=== PATIENT | female | born 1955 | race Caucasian/White ===

== ENCOUNTER → 2016-08-29 09:12 | Outpatient (CLI) | payer MEDICARE | LOC: D.MAMMO 09:12 | DX: Z12.31 Encounter for screening mammogram for malignant neoplasm of breast (principal) ==

== ENCOUNTER → 2016-12-13 13:46 | Outpatient (CLI) | payer MEDICARE ==
[2016-12-13 15:44] LABS: BASOPHILS 0.3 % (0-2); HEMATOCRIT 43.6 % (36.0-48.0); HEMOGLOBIN 14.5 g/dL (12-16); IMMATURE GRANULOCYTES 0.3 % (0-5); LYMPHOCYTES 20.9 % (15-50); MCH 30.6 pg (26.0-34.0); MCHC 33.3 g/dL (31.0-37.0); MEAN PLATELET VOLUME 9.9 fL (7.4-10.4); MONOCYTES 6.2 % (2-11); NEUTROPHILS 66.3 % (40-80); PLATELET COUNT 276 10x3/uL (130-400); RBC 4.74 10x6/uL (4.00-5.40); RDW 13.2 % (11.5-14.5); WBC 11.6 10x3/uL (4.8-10.8)
== END | disposition home or self-care (01) ==
LOC: D.RT 13:46
PROVIDERS: Internal Medicine Pulmonary Disease
DX: J45.909 Unspecified asthma, uncomplicated (principal)

== ENCOUNTER → 2017-06-20 19:31 | Outpatient (CLI) | payer MEDICARE | END | disposition home or self-care (01) | LOC: D.SLEEP 08:00 | DX: G47.36 Sleep related hypoventilation in conditions classified elsewhere (principal) ==

== ENCOUNTER → 2017-10-16 07:48 | Outpatient (CLI) | payer MEDICARE | END | disposition home or self-care (01) | LOC: D.RT 07:48 | DX: J45.909 Unspecified asthma, uncomplicated (principal) ==

== ENCOUNTER 2018-06-03 03:38 | Inpatient (IN) | payer MEDICARE ==
[2018-06-03] VITALS (9 sets, daily range): BP systolic 113–124; BP diastolic 54–74; Ht 170.2 cm; Wt 86.4 kg
[~2018-06-03] VITALS: Ht 170.2 cm; Wt 86.4 kg
[2018-06-03] MEDS ORDERED: VASOTEC5 MG PO (03:43)
[2018-06-03] MEDS ORDERED: K-TAB10 MEQ PO (03:44)
[2018-06-03] MEDS ORDERED: LASIX40 MG PO (03:44)
[2018-06-03] MEDS ORDERED: PREDNISONE10 MG PO (03:46)
[2018-06-03] MEDS ORDERED: ADVAIR HFA 230-12 GM INH (03:46)
[2018-06-03] MEDS ORDERED: ALENDRONAT70 MG/75 M PO (03:46)
[2018-06-03] MEDS ORDERED: SINGULAIR10 MG PO (03:46)
[2018-06-03] MEDS ORDERED: L-LYSINE500 M1 PO (03:46)
[2018-06-03] MEDS ORDERED: ALBUTEROL SULF8.5 GM INH (03:47)
[2018-06-03] MEDS ORDERED: ATROVENT HFA12.9 GM (03:47)
[2018-06-03 03:57] LABS: BASOPHILS 0.3 % (0-2); EOSINOPHILS 2.3 % (0-7); HEMATOCRIT 40.2 % (36.0-48.0); HEMOGLOBIN 13.2 g/dL (12-16); IMMATURE GRANULOCYTES 0.3 % (0-5); LYMPHOCYTES 17.2 % (15-50); MCH 30.1 pg (26.0-34.0); MCHC 32.8 g/dL (31.0-37.0); MCV 91.6 fL (80.0-100.0); MEAN PLATELET VOLUME 9.7 fL (7.4-10.4); MONOCYTES 7.5 % (2-11); NEUTROPHILS 72.4 % (40-80); PLATELET COUNT 250 10x3/uL (130-400); RBC 4.39 10x6/uL (4.00-5.40); RDW 12.8 % (11.5-14.5); WBC 10.9 10x3/uL (4.8-10.8)
[2018-06-03 04:12] LABS: APTT 25.1 SECONDS (22.8-39.4); INR 0.99 (0.85-1.17); PROTIME 12.6 SECONDS (11.6-15.0)
[2018-06-03 04:17] LABS: ALBUMIN 2.9 g/dL (3.4-5.0); ALKALINE PHOSPHATASE 59 U/L (46-116); ALT (SGPT) 21 U/L (10-68); BILIRUBIN - TOTAL 0.13 mg/dL (0.2-1.3); CALC OSMOLALITY 280 mosm/kg (275-300); CALCIUM 8.1 mg/dL (8.5-10.1); CARBON DIOXIDE 28.5 mmol/L (21.0-32.0); CHLORIDE - SERUM 104 mmol/L (98-107); CREATININE - SERUM 0.7 mg/dL (0.6-1.3); GLUCOSE 113 mg/dL (74-106); POTASSIUM - SERUM 3.6 mmol/L (3.5-5.1); PROTEIN - SERUM 6.8 g/dL (6.4-8.2); SODIUM 139 mmol/L (136-145); UREA NITROGEN 18 mg/dL (7-18); eGFR NON AFRICAN AMERICAN 89 mL/min (90-120)
[2018-06-03 04:25] LABS: PRO BNP 102 pg/mL (0-125); TROPONIN-I < 0.017 ng/mL (0.000-0.060)
--- NOTE | 2018-06-03 07:43 | NUR ---
PATIENT IN BED WITH IV INTACT. TRACTION INTACT. NO COMPLAINTS. FAMILY AT BEDSIDE. CALL LIGHT WITHIN REACH.
--- NOTE | 2018-06-03 11:06 | NUR ---
PATIENT PREOPED AND READY FOR SURGERY AT THIS TIME.
--- NOTE | 2018-06-03 15:05 | NUR ---
PAIENT TO SURGERY
--- NOTE | 2018-06-03 18:13 | NUR ---
PATIENT BACK FROM OR. VS STABLE. IV INTACT. HICKS INTACT. CALL LIGHT WITHIN REACH. FAMILY AT BEDSIDE
[2018-06-04] VITALS: BP 148/68
[2018-06-04 03:00] VITALS: BP 143/62
[2018-06-04 04:52] LABS: BASOPHILS 0.2 % (0-2); EOSINOPHILS 2.3 % (0-7); HEMATOCRIT 34.7 % (36.0-48.0); HEMOGLOBIN 11.4 g/dL (12-16); IMMATURE GRANULOCYTES 0.3 % (0-5); LYMPHOCYTES 12.7 % (15-50); MCHC 32.9 g/dL (31.0-37.0); MCV 91.3 fL (80.0-100.0); MEAN PLATELET VOLUME 9.9 fL (7.4-10.4); MONOCYTES 8.4 % (2-11); NEUTROPHILS 76.1 % (40-80); PLATELET COUNT 218 10x3/uL (130-400); RDW 13.3 % (11.5-14.5); WBC 9.9 10x3/uL (4.8-10.8)
--- NOTE | 2018-06-04 05:04 | NUR ---
PT IN BED IN LOW FOWLERS POSITION. ALERT AND ORIENTED X4. RESPIRATIONS EVEN AND UNLABORED. VITAL SIGNS STABLE AND AFEBRILE. NO VISUAL CUES OF DISTRESS NOTED. DENIES ANY OTHER NEEDS AT THIS TIME. BED LOW, SIDE RAILS UP X2. CALL LIGHT IN REACH. WILL CONTINUE TO MONITOR.
[2018-06-04 05:06] LABS: CALC OSMOLALITY 274 mosm/kg (275-300); CALCIUM 7.4 mg/dL (8.5-10.1); CARBON DIOXIDE 26.1 mmol/L (21.0-32.0); CHLORIDE - SERUM 103 mmol/L (98-107); CREATININE - SERUM 0.7 mg/dL (0.6-1.3); GLUCOSE 131 mg/dL (74-106); POTASSIUM - SERUM 3.9 mmol/L (3.5-5.1); SODIUM 137 mmol/L (136-145); eGFR NON AFRICAN AMERICAN 89 mL/min (90-120)
[2018-06-04 05:08] LABS: UREA NITROGEN 11 mg/dL (7-18)
--- NOTE | 2018-06-04 08:45 | NUR ---
PATIENT IN BED WITH IV INTACT. NO COMPLAINTS OR SIGNS OF DISTRESS. FAMILY AT BEDSIDE. RSCD ON AND WORKING. CALL LIGHT WITHIN REACH.
[2018-06-04 09:23] VITALS: BP 112/67
[2018-06-04 13:49] VITALS: BP 104/53
[2018-06-04 18:34] VITALS: BP 93/50
--- NOTE | 2018-06-04 18:55 | NUR ---
PATIENT IN BED WITH NO COMPLAINTS OR SIGNS OF DISTRESS. IV INTACT. PAIN MEDS GIVEN. FAMILY AT BEDSIDE. CALL LIGHT WITHIN REACH. RSCD ON AND WORKING. PULSE TO LLE WNL. ABLE TO MOVE TOES AND IS WARM. DRESSING TO HIP CDI. HICKS INTACT. CALL LIGHT WITHIN REACH.
--- NOTE | 2018-06-04 19:15 | NUR ---
PT ALERT AND ORIENTED WHEN ENTERING THE ROOM. OBTAINED MANUAL BLOOD PRESSURE OF 99/62. LEFT HIP INCISION SHOW FAINT DRIED BLOOD. PT STATES PAIN IS CURRENTLY TOLERABLE. HICKS CATHETER IN PLACE WITH LIGHT YELLOW URINE. SPOKE WITH PATIENT ABOUT D/C'ING HICKS. PT BEGGED TO KEEP HICKS IN BECAUSE SHE HAS NOT GOTTEN UP WITH THERAPY YET AND STATES SHE CAN'T LIFT HIPS TO PUT BED BUTT UNDER. EDUCATED PT ON RISKS OF HICKS BEING IN TOO LONG. PT ADAMANT ABOUT KEEPING HICKS. CALL LIGHT IN REACH. DAUGHTER AT BEDSIDE. USES CALL LIGHT.
[2018-06-04 21:09] VITALS: BP 95/54
[2018-06-05 00:23] VITALS: BP 95/50
--- NOTE | 2018-06-05 03:07 | NUR ---
I have reviewed this patient and I concur with the Shift Assessment completed by the Licensed Practical Nurse today this shift.
[2018-06-05 05:09] VITALS: BP 90/54
[2018-06-05 06:08] LABS: BASOPHILS 0.2 % (0-2); EOSINOPHILS 4.2 % (0-7); HEMATOCRIT 33.9 % (36.0-48.0); HEMOGLOBIN 10.9 g/dL (12-16); IMMATURE GRANULOCYTES 0.2 % (0-5); LYMPHOCYTES 18.8 % (15-50); MCH 29.7 pg (26.0-34.0); MCHC 32.2 g/dL (31.0-37.0); MCV 92.4 fL (80.0-100.0); MEAN PLATELET VOLUME 10.3 fL (7.4-10.4); MONOCYTES 10.5 % (2-11); NEUTROPHILS 66.1 % (40-80); PLATELET COUNT 216 10x3/uL (130-400); RBC 3.67 10x6/uL (4.00-5.40); RDW 13.5 % (11.5-14.5); WBC 9.9 10x3/uL (4.8-10.8)
[2018-06-05 06:14] LABS: CALC OSMOLALITY 278 mosm/kg (275-300); CALCIUM 7.6 mg/dL (8.5-10.1); CARBON DIOXIDE 27.3 mmol/L (21.0-32.0); CHLORIDE - SERUM 106 mmol/L (98-107); CREATININE - SERUM 0.7 mg/dL (0.6-1.3); GLUCOSE 113 mg/dL (74-106); POTASSIUM - SERUM 3.6 mmol/L (3.5-5.1); SODIUM 140 mmol/L (136-145); UREA NITROGEN 11 mg/dL (7-18); eGFR NON AFRICAN AMERICAN 89 mL/min (90-120)
--- NOTE | 2018-06-05 08:00 | NUR ---
MORNING ASSESSMENT COMPLETE. SEE ASSESSMENT FLOWSHEET FOR FURTHER DETAILS. PT IS SITTING UP IN BED AAO X4 TO PERSON, PLACE, TIME, AND SITUATION. FAMILY MEMBER AT BEDISDE. DENIES NEEDS AT THIS TIME. CL IN REACH. SIDE RAILS UP X3 FOR PATIENT SAFETY
[2018-06-05 08:14] VITALS: BP 90/50
[2018-06-05 12:21] VITALS: BP 98/59
--- NOTE | 2018-06-05 15:13 | MORECARE ---
CASE MANAGEMENT DISCHARGE SUMMARY PATIENT: GRIS DELGADO UNIT: [id number] ADM DATE: 06/03/18 AGE: 63 : 54 SEX: F ROOM/BED: D.2208 AUTHOR: ASHLYN,DOC PHYSICIAN: REFERRING PHYSICIAN: MAR STOREY MD DATE OF SERVICE: 06/05/18 Discharge Plan Patient Name: GRIS DELGADO Facility: [facility]:[place] : 1955 Planned Disposition: Home or Self Care Anticipated Discharge Date: Discharge Date: Expected LOS: Initial Reviewer: [email or web address] Initial Review Date: 06/03/2018 Generated: 06/05/18 4:12 pm Comments DCP- Discharge Planning Updated by [email or web address]: Carmina Bella on 06/05/18 2:[address] Patient Name: GRIS DELGADO Admission Status: ER Accout number: [id number] Admission Date: 06-03-2018 : 1955 Admission Diagnosis: Attending: MAR STOREY Current LOS: 2 Anticipated DC Date: Planned Disposition: Home or Self Care Primary Insurance: MEDICARE A & B Discharge Planning Comments: CM met with patient to complete initial dc planning assessment. CM educated patient on the CM role and verbal consent given by patient to complete assessment. Patient lives at home with , where she was independent with her care. At discharge patient would like to discharge home, but unsure if that is a safe discharge. Patient's daughter is here to help for the next 2 weeks, but patient is not taking steps at this time. CM discussed availability of home health, rehab services, and medical equipment. She will need a walker and a BSC at discharge and her is building a ramp. I discussed with PT and JOURNEYMAN PLUMBER on inpatient rehab CM will continue to follow and will assist as needed with dc plans/needs. Chro: Carmina Bella DCPIA - Discharge Planning Initial Assessment Updated by [email or web address]: Carmina Bella on 06/05/18 3:06 pm * Is the patient Alert and Oriented? Yes * How many steps to enter\exit or inside your home? RAMP * PCP NICK GUTIERREZ * [facility] * Preadmission Environment Home with Family * ADLs Independent * Equipment CPAP * List name and contact numbers for known caregivers / representatives who currently or will assist patient after discharge: KAYLA DELGADO ([phone]) * Verbal permission to speak to the caregivers and representatives has been obtained from the patient. N/A * Community resources currently utilized None * Additional services required to return to the preadmission environment? Yes * Can the patient safely return to the preadmission environment? No * Has this patient been hospitalized within the prior 30 days at any hospital? No Patient Name: GRIS DELGADO Page [id number] at 1513 All edits/amendments must be made on the electronic document DICTATION DATE: 06/05/181511 EXPERIMENTAL TECHNICIAN: YESENIA 06/05/181511 RPT#: [id number] DC DATE: STATUS: ADM IN [facility] [address] [place] [address] END OF REPORT
--- NOTE | 2018-06-05 15:30 | NUR ---
Rehab Note- Acute Inpatient Rehab prescreen order received. The has been seen by PT, but having some dizziness and not able to ambulate. Will follow at this time. Thank you for this referral! Julissa Campbell RN Clinical Liaison, [facility] Rehab
[2018-06-05 16:30] VITALS: BP 104/55
--- NOTE | 2018-06-05 20:40 | NUR ---
AWAKE,ALERT.NO COMPLAITNS VOICED AT THIS TIME. RESP EVEN AND UNALBORED. NO DISTRESS NOTED. IV TO RIGHT HAND INTACT WITHOUT REDNESS OR EDEMA NOTED. DRESSING TO LEFT HIP WITH SMALL AMOUNT OF DRIED DRAINAGE NOTED. CL IN REACH. FAMILY AT BEDSIDE.
[2018-06-05 21:05] VITALS: BP 98/48
--- NOTE | 2018-06-06 02:50 | NUR ---
I have reviewed this patient and I concur with the Shift Assessment completed by the Licensed Practical Nurse today this shift.
--- NOTE | 2018-06-06 04:06 | NUR ---
I have reviewed this patient and I concur with the Shift Assessment completed by the Licensed Practical Nurse today this shift.
[2018-06-06 04:43] VITALS: BP 107/55
[2018-06-06 04:58] LABS: BASOPHILS 0.2 % (0-2); EOSINOPHILS 4.6 % (0-7); HEMATOCRIT 30.4 % (36.0-48.0); IMMATURE GRANULOCYTES 0.3 % (0-5); LYMPHOCYTES 25.2 % (15-50); MCH 30.2 pg (26.0-34.0); MCHC 32.9 g/dL (31.0-37.0); MCV 91.8 fL (80.0-100.0); MONOCYTES 8.3 % (2-11); NEUTROPHILS 61.4 % (40-80); PLATELET COUNT 222 10x3/uL (130-400); RBC 3.31 10x6/uL (4.00-5.40); RDW 13.5 % (11.5-14.5); WBC 9.5 10x3/uL (4.8-10.8)
[2018-06-06 05:13] LABS: CALC OSMOLALITY 281 mosm/kg (275-300); CALCIUM 7.5 mg/dL (8.5-10.1); CARBON DIOXIDE 27.1 mmol/L (21.0-32.0); CHLORIDE - SERUM 108 mmol/L (98-107); CREATININE - SERUM 0.6 mg/dL (0.6-1.3); GLUCOSE 98 mg/dL (74-106); POTASSIUM - SERUM 3.6 mmol/L (3.5-5.1); SODIUM 142 mmol/L (136-145); UREA NITROGEN 10 mg/dL (7-18); eGFR NON AFRICAN AMERICAN > 90 mL/min (90-120)
[2018-06-06 08:47] VITALS: BP 128/77
[2018-06-06 12:49] VITALS: BP 106/53
--- NOTE | 2018-06-06 13:40 | NUR ---
PATIENT SITTING UP IN CHAIR. DAUGHTER IN THE ROOM. NO CONCERNS AT THIS TIME. NO CO PAIN.
--- NOTE | 2018-06-06 15:28 | NUR ---
CHANGED THE BANDAGES. PATIENT HAS DEVELOPED 2 SEPARATE BLISTERS RELATED TO THE TAPE ON THE BANAGE. NO COMPLAINTS AT THIS TIME. PATIENT TOLERATED WELL
[2018-06-06 16:48] VITALS: BP 95/50
[2018-06-06 18:00] LABS: APPEARANCE CLEAR (CLEAR); BILIRUBIN NEGATIVE (NEGATIVE); COLOR YELLOW (YELLOW); GLUCOSE NEGATIVE (NEGATIVE); KETONE NEGATIVE (NEGATIVE); NITRITE NEGATIVE (NEGATIVE); PROTEIN NEGATIVE (NEGATIVE); SPECIFIC GRAVITY 1.015 (1.005-1.020); UROBILINOGEN NORMAL (NORMAL)
--- NOTE | 2018-06-06 20:52 | NUR ---
AWAKE,ALERT.LYING QUIELTY. NO DISTRESS NOTED. RESP EVEN AND UNALBORED. DRESSING TO LEFT LEG INTACT WITHOUT DRAINAGE NOTED. SL TO RIGHT HAND WITHOUT REDNESS OR EDEMA. DAUGHTER AT BEDSIDE. CL IN REACH
[2018-06-06 21:03] VITALS: BP 105/57
[2018-06-07 04:45] VITALS: BP 114/61
--- NOTE | 2018-06-07 04:49 | NUR ---
PT IN BED IN LOW FOWLERS POSITION. REPIRATIONS EVEN AND UNLABORED. VITAL SIGNS STABLE AND AFEBRILE. NO VISUAL CUES OF DISTRESS NOTED. DENIES ANY OTHER NEEDS AT THIS TIME. BED LOW, SIDE RAILS UP X2. CALL LIGHT IN REACH. WILL CONTINUE TO MONITOR.
[2018-06-07 06:02] LABS: BASOPHILS 0.2 % (0-2); EOSINOPHILS 7.1 % (0-7); HEMATOCRIT 31.4 % (36.0-48.0); HEMOGLOBIN 10.2 g/dL (12-16); IMMATURE GRANULOCYTES 0.3 % (0-5); LYMPHOCYTES 26.4 % (15-50); MCH 29.8 pg (26.0-34.0); MCHC 32.5 g/dL (31.0-37.0); MCV 91.8 fL (80.0-100.0); MEAN PLATELET VOLUME 9.9 fL (7.4-10.4); MONOCYTES 6.4 % (2-11); NEUTROPHILS 59.6 % (40-80); PLATELET COUNT 266 10x3/uL (130-400); RBC 3.42 10x6/uL (4.00-5.40); RDW 13.9 % (11.5-14.5); WBC 8.8 10x3/uL (4.8-10.8)
[2018-06-07 06:15] LABS: CALC OSMOLALITY 285 mosm/kg (275-300); CALCIUM 7.8 mg/dL (8.5-10.1); CARBON DIOXIDE 26.3 mmol/L (21.0-32.0); CHLORIDE - SERUM 108 mmol/L (98-107); CREATININE - SERUM 0.7 mg/dL (0.6-1.3); GLUCOSE 101 mg/dL (74-106); POTASSIUM - SERUM 3.8 mmol/L (3.5-5.1); SODIUM 144 mmol/L (136-145); UREA NITROGEN 11 mg/dL (7-18); eGFR NON AFRICAN AMERICAN 89 mL/min (90-120)
[2018-06-07 10:08] VITALS: BP 117/62
--- NOTE | 2018-06-07 10:55 | MORECARE ---
CASE MANAGEMENT DISCHARGE SUMMARY PATIENT: GRIS DELGADO UNIT: [id number] ADM DATE: 06/03/18 AGE: 63 : 54 SEX: F ROOM/BED: D.2208 AUTHOR: ANGELA GOLDBERG PHYSICIAN: REFERRING PHYSICIAN: MAR STOREY MD DATE OF SERVICE: 06/07/18 Discharge Plan Patient Name: GRIS DELGADO Facility: [facility]:[place] : 1955 Planned Disposition: Home or Self Care Anticipated Discharge Date: Discharge Date: Expected LOS: Initial Reviewer: [email or web address] Initial Review Date: 06/03/2018 Generated: 06/07/18 11:54 am Comments DCP- Discharge Planning Updated by [email or web address]: Carmina Bella on 06/07/18 9:[address] PATIENT WILL BE DISCHARGING TO INPATIENT REHAB TODAY, IMM SIGNED AND EXPLAINED. DAUGHTER AT BEDSIDE AND IS AWARE. CM WILL CONTINUE TO FOLLOW AND ASSIST WITH DC PLANNING DCP- Discharge Planning Updated by [email or web address]: Carmina Bella on 06/05/18 2:[address] Patient Name: GRIS DELGADO Admission Status: ER Accout number: [id number] Admission Date: 06-03-2018 : 1955 Admission Diagnosis: Attending: MAR STOREY Current LOS: 2 Anticipated DC Date: Planned Disposition: Home or Self Care Primary Insurance: MEDICARE A & B Discharge Planning Comments: CM met with patient to complete initial dc planning assessment. CM educated patient on the CM role and verbal consent given by patient to complete assessment. Patient lives at home with , where she was independent with her care. At discharge patient would like to discharge home, but unsure if that is a safe discharge. Patient's daughter is here to help for the next 2 weeks, but patient is not taking steps at this time. CM discussed availability of home health, rehab services, and medical equipment. She will need a walker and a BSC at discharge and her is building a ramp. I discussed with PT and EQUALIZING SAW OPERATOR on inpatient rehab CM will continue to follow and will assist as needed with dc plans/needs. Railroad Car Inspector: Carmina Bella DCPIA - Discharge Planning Initial Assessment Updated by [email or web address]: Carmina Bella on 06/05/18 3:06 pm * Is the patient Alert and Oriented? Yes * How many steps to enter\exit or inside your home? RAMP * PCP NICK GUTIERREZ * [facility] * Preadmission Environment Home with Family * ADLs Independent * Equipment CPAP * List name and contact numbers for known caregivers / representatives who currently or will assist patient after discharge: KAYLA DELGADO ([phone]) * Verbal permission to speak to the caregivers and representatives has been obtained from the patient. N/A * Community resources currently utilized None * Additional services required to return to the preadmission environment? Yes * Can the patient safely return to the preadmission environment? No * Has this patient been hospitalized within the prior 30 days at any hospital? No Coverage Notice Reviewer: [id number] - Carmina Bella Notice Issued Date-Time: 06/07/2018 10:40 Notice Type: IM Discharge Notice Notice Delivered To: Patient Relationship to Patient: Inside Sales Agent Name: Delivery Method: HAND - Hand Delivered Venus Days: Prior Verbal Notification: Recipient Understood Notice: Yes Recipient Signature: Yes Med Rec Note Co-signed by Attending: Coverage Notice Comment: Last DP export: 06/05/18 2:12 p Patient Name: GRIS DELGADO Page 10451 at 1055 All edits/amendments must be made on the electronic document DICTATION DATE: 06/07/18 1054 HUMAN SERVICES CARE SPECIALIST: YESENIA 06/07/18 1054 RPT#: [id number] DC DATE: STATUS: ADM IN [facility] [address] [place] [address] END OF REPORT
--- NOTE | 2018-06-07 11:09 | NUR ---
REHAB PRESCREENING Rehab has continued to follow this patient. She will be a good candidate for acute inpatient rehab. We will begin paper screen and can accept her when approvals are in place and her physician feels she is appropriate to discharge. Thank you for this referral! Michelle Good, [facility]
[2018-06-07] MEDS ORDERED: VENTOLIN HFA [SP] INH (11:16)
[2018-06-07] MEDS ORDERED: ACETAMINOPHEN325 MG PO (11:17)
[2018-06-07] MEDS ORDERED: HYDROCODON-ACE1 EAC7 PO (11:17)
[2018-06-07] MEDS ORDERED: MIRALAX17 GM PO (11:17)
[2018-06-07] MEDS ORDERED: ASPIRIN81 MG PO (11:17)
[2018-06-07] MEDS ORDERED: ZOFRAN ODT4 MG/UDTAB PO (11:18)
[2018-06-07 13:37] VITALS: BP 123/62
--- NOTE | 2018-06-07 13:45 | MORECARE ---
CASE MANAGEMENT DISCHARGE SUMMARY PATIENT: GRIS DELGADO UNIT: [id number] ADM DATE: 06/03/18 AGE: 63 : 53 SEX: F ROOM/BED: D.2208 AUTHOR: ASHLYNDOC PHYSICIAN: REFERRING PHYSICIAN: MAR STOREY MD DATE OF SERVICE: 06/07/18 Discharge Plan Patient Name: GRIS DELGADO Facility: [facility]:[employer] : 1955 Planned Disposition: Home or Self Care Anticipated Discharge Date: Discharge Date: Expected LOS: Initial Reviewer: [email or web address] Initial Review Date: 06/03/2018 Generated: 06/07/18 2:45 pm Comments DCP- Discharge Planning Updated by [email or web address]: Carmina Bella on 06/07/18 9:[address] PATIENT WILL BE DISCHARGING TO INPATIENT REHAB TODAY, IMM SIGNED AND EXPLAINED. DAUGHTER AT BEDSIDE AND IS AWARE. CM WILL CONTINUE TO FOLLOW AND ASSIST WITH DC PLANNING DCP- Discharge Planning Updated by [id number]: Carmina Bella on 06/05/18 2:[address] Patient Name: GRIS DELGADO Admission Status: ER Accout number: [id number] Admission Date: 06-03-2018 : 1955 Admission Diagnosis: Attending: MAR STOREY Current LOS: 2 Anticipated DC Date: Planned Disposition: Home or Self Care Primary Insurance: MEDICARE A & B Discharge Planning Comments: CM met with patient to complete initial dc planning assessment. CM educated patient on the CM role and verbal consent given by patient to complete assessment. Patient lives at home with , where she was independent with her care. At discharge patient would like to discharge home, but unsure if that is a safe discharge. Patient's daughter is here to help for the next 2 weeks, but patient is not taking steps at this time. CM discussed availability of home health, rehab services, and medical equipment. She will need a walker and a BSC at discharge and her is building a ramp. I discussed with PT and ASSISTANT IMPORT MANAGER on inpatient rehab CM will continue to follow and will assist as needed with dc plans/needs. Video Game Tester: Carmina Bella DCPIA - Discharge Planning Initial Assessment Updated by [email or web address]: Carmina Bella on 06/05/18 3:06 pm * Is the patient Alert and Oriented? Yes * How many steps to enter\exit or inside your home? RAMP * PCP NICK GUTIERREZ * [facility] * Preadmission Environment Home with Family * ADLs Independent * Equipment CPAP * List name and contact numbers for known caregivers / representatives who currently or will assist patient after discharge: KAYLA DELGADO ([phone]) * Verbal permission to speak to the caregivers and representatives has been obtained from the patient. N/A * Community resources currently utilized None * Additional services required to return to the preadmission environment? Yes * Can the patient safely return to the preadmission environment? No * Has this patient been hospitalized within the prior 30 days at any hospital? No Coverage Notice Reviewer: [id number] - Carmina Bella Notice Issued Date-Time: 06/07/2018 10:40 Notice Type: IM Discharge Notice Notice Delivered To: Patient Relationship to Patient: Cco & President Name: Delivery Method: HAND - Hand Delivered Venus Days: Prior Verbal Notification: Recipient Understood Notice: Yes Recipient Signature: Yes Med Rec Note Co-signed by Attending: Coverage Notice Comment: Last DP export: 06/07/18 9:55 a Patient Name: GRIS DELGADO Page [id number] at 1345 All edits/amendments must be made on the electronic document DICTATION DATE: 06/07/[address]RIER: YESENIA 06/07/18 1345 RPT#: [id number] DC DATE: STATUS: ADM IN [facility] [address] [place] [address] END OF REPORT
--- NOTE | 2018-06-08 16:40 | MORECARE ---
CASE MANAGEMENT DISCHARGE SUMMARY PATIENT: GRIS DELGADO UNIT: [id number] ADM DATE: 06/03/18 AGE: 63 : 53 SEX: F ROOM/BED: D.2208 AUTHOR: ASHLYN,DOC PHYSICIAN: REFERRING PHYSICIAN: MAR STOREY MD DATE OF SERVICE: 06/08/18 Discharge Plan Patient Name: GRIS DELGADO Facility: [facility]:[place] : 1955 Planned Disposition: Home or Self Care Anticipated Discharge Date: Discharge Date: 06/07/2018 Expected LOS: 0 Initial Reviewer: [email or web address] Initial Review Date: 06/03/2018 Generated: 06/08/18 5:40 pm Comments DCP- Discharge Planning Updated by [email or web address]: Carmina Bella on 06/07/18 9:[address] PATIENT WILL BE DISCHARGING TO INPATIENT REHAB TODAY, IMM SIGNED AND EXPLAINED. DAUGHTER AT BEDSIDE AND IS AWARE. CM WILL CONTINUE TO FOLLOW AND ASSIST WITH DC PLANNING DCP- Discharge Planning Updated by [email or web address]: Carmina Bella on 06/05/18 2:[address] Patient Name: GRIS DELGADO Admission Status: ER Accout number: [id number] Admission Date: 06-03-2018 : 1955 Admission Diagnosis: Attending: MAR STOREY Current LOS: 2 Anticipated DC Date: Planned Disposition: Home or Self Care Primary Insurance: MEDICARE A & B Discharge Planning Comments: CM met with patient to complete initial dc planning assessment. CM educated patient on the CM role and verbal consent given by patient to complete assessment. Patient lives at home with , where she was independent with her care. At discharge patient would like to discharge home, but unsure if that is a safe discharge. Patient's daughter is here to help for the next 2 weeks, but patient is not taking steps at this time. CM discussed availability of home health, rehab services, and medical equipment. She will need a walker and a BSC at discharge and her is building a ramp. I discussed with PT and PEBBLE MILL OPERATOR on inpatient rehab CM will continue to follow and will assist as needed with dc plans/needs. Leasing Machine Tender: Carmina Bella DCPIA - Discharge Planning Initial Assessment Updated by [email or web address]: Carmina Bella on 06/05/18 3:06 pm * Is the patient Alert and Oriented? Yes * How many steps to enter\exit or inside your home? RAMP * PCP NICK GUTIERREZ * [facility] * Preadmission Environment Home with Family * ADLs Independent * Equipment CPAP * List name and contact numbers for known caregivers / representatives who currently or will assist patient after discharge: KAYLA DELGADO ([phone]) * Verbal permission to speak to the caregivers and representatives has been obtained from the patient. N/A * Community resources currently utilized None * Additional services required to return to the preadmission environment? Yes * Can the patient safely return to the preadmission environment? No * Has this patient been hospitalized within the prior 30 days at any hospital? No Coverage Notice Reviewer: [id number] - Carmina Bella Notice Issued Date-Time: 06/07/2018 10:40 Notice Type: IM Discharge Notice Notice Delivered To: Patient Relationship to Patient: Vet Tech Name: Delivery Method: HAND - Hand Delivered Venus Days: Prior Verbal Notification: Recipient Understood Notice: Yes Recipient Signature: Yes Med Rec Note Co-signed by Attending: Coverage Notice Comment: Last DP export: 06/07/18 12:45 p Patient Name: GRIS DELGADO Page [id number] at 1640 All edits/amendments must be made on the electronic document DICTATION DATE: 06/08/181638 AIRCRAFT DESIGNER: YESENIA 06/08/18 163 RPT#: [id number] DC DATE:06/07/18 STATUS: DIS IN [facility] [address] [place] [address] END OF REPORT
== END 2018-06-07 13:59 | DRG 481 ==
LOC: D.ER 03:38 → D.MS 04:21
PROVIDERS: Family Medicine; Orthopaedic Surgery; ADMIT Internal Medicine Nephrology; ATTEND Internal Medicine Nephrology
PROC: 0QS906Z Reposition Left Femoral Shaft with Intramedullary Internal Fixation Device, Open Approach (ICD-10-PCS; principal; 2018-06-03 13:00)
DX: S72.392A Other fracture of shaft of left femur, initial encounter for closed fracture (principal); D62 Acute posthemorrhagic anemia; J45.909 Unspecified asthma, uncomplicated

== ENCOUNTER 2018-06-07 14:37 | Inpatient (IN) | payer MEDICARE ==
[~2018-06-07] VITALS: Ht 170.2 cm; Wt 86.2 kg
[~2018-06-07 14:37] MED LIST: ACETAMINOPHEN325 MG PO; ADVAIR HFA 230-12 GM INH; ALBUTEROL SULF8.5 GM INH; ALENDRONAT70 MG/75 M PO; ASPIRIN81 MG PO; ATROVENT HFA12.9 GM; HYDROCODON-ACE1 EAC7 PO; K-TAB10 MEQ PO; L-LYSINE500 M1 PO; LASIX40 MG PO; MIRALAX17 GM PO; PREDNISONE10 MG PO; SINGULAIR10 MG PO; VASOTEC5 MG PO; VENTOLIN HFA [SP] INH; ZOFRAN ODT4 MG/UDTAB PO
[2018-06-07 14:44] VITALS: BP 102/53; BMI 29.8
[2018-06-07 19:00] VITALS: BP 109/61
--- NOTE | 2018-06-07 23:36 | NUR ---
AWAKE AND ALERT. ASSISTED TO BATHROOM AND BACK TO BED. TOLERATED WELL. MILD PAIN. MEDICATED WITH TYLENOL PO FOR PAIN. SEE VERITO. LIBIA GALARZA LEFT UPPER LEG INTACT. NO DISTRESS NOTED. CALL LIGHT IN REACH.
--- NOTE | 2018-06-08 03:29 | NUR ---
RESTING IN BED WITH EYES CLOSED AND RESPIRATIONS UNLABORED. NO DISTRESS NOTED. CALL LIGHT IN REACH.
--- NOTE | 2018-06-08 07:02 | NUR ---
RESTING QUIETLY IN BED. NO S/S DISTRESS. RESP EFFORT NON LABORED. EYES CLOSED. BED IN LOWEST POSITION. CALL LIGHT IN REACH.
[2018-06-08 07:13] LABS: BASOPHILS 0.5 % (0-2); HEMATOCRIT 32.5 % (36.0-48.0); HEMOGLOBIN 10.4 g/dL (12-16); IMMATURE GRANULOCYTES 0.2 % (0-5); LYMPHOCYTES 28.2 % (15-50); MCH 29.6 pg (26.0-34.0); MCV 92.6 fL (80.0-100.0); MEAN PLATELET VOLUME 9.9 fL (7.4-10.4); MONOCYTES 7.3 % (2-11); NEUTROPHILS 54.8 % (40-80); PLATELET COUNT 304 10x3/uL (130-400); RBC 3.51 10x6/uL (4.00-5.40); RDW 14.1 % (11.5-14.5); WBC 8.3 10x3/uL (4.8-10.8)
[2018-06-08 07:19] LABS: CALC OSMOLALITY 285 mosm/kg (275-300); CALCIUM 8.2 mg/dL (8.5-10.1); CARBON DIOXIDE 27.2 mmol/L (21.0-32.0); CHLORIDE - SERUM 107 mmol/L (98-107); CREATININE - SERUM 0.7 mg/dL (0.6-1.3); GLUCOSE 92 mg/dL (74-106); POTASSIUM - SERUM 3.8 mmol/L (3.5-5.1); SODIUM 143 mmol/L (136-145); eGFR NON AFRICAN AMERICAN 89 mL/min (90-120)
[2018-06-08 07:22] LABS: UREA NITROGEN 14 mg/dL (7-18)
[2018-06-08 08:00] VITALS: BP 120/63
[2018-06-08 10:16] VITALS: Ht 170.2 cm; Wt 86.2 kg
--- NOTE | 2018-06-08 13:56 | NUR ---
PT RESTING IN BED WITH EYES OPEN CALL LIGHT IN REACH NO PROBLEMS WILL MONITER
--- NOTE | 2018-06-08 15:24 | NUR ---
PATIENT ADMITTED TO REHAB FROM ACUTE FLOOR. HER PCP IS NICK GUTIERREZ. DME AT HOME IS A C-BEV. DISCHARGE PLANS ARE FOR HER TO RETURN HOME WITH HER SPOUSE. WILL CONTINUE TO FOLLOW WITH PATIENT
--- NOTE | 2018-06-08 18:24 | NUR ---
PT RESTING IN BED WITH EYES OPEN CALL LIGHT IN REACH NO PROBLEMS WILL MONMITER
[2018-06-08 19:00] VITALS: BP 97/61
[2018-06-09 07:30] VITALS: BP 110/62
--- NOTE | 2018-06-09 07:59 | NUR ---
PT IN THERAPY GYM EATING BREAKFAST, DENIES NEEDS. WCTM.
--- NOTE | 2018-06-09 18:26 | NUR ---
PT SITTING UP IN WHEELCHAIR EATING DINNER, DENIES NEEDS. FAMILY AT BEDSIDE. WCTM.
--- NOTE | 2018-06-09 20:29 | NUR ---
THE PATIENT WAS LYING IN BED WHEN STAFF ENTERED HER ROOM. BED IS IN THE LOW POSITION WITH SIDERAILS X2 AND CALL LIGHT WITHIN REACH. THE PATIENT WAS EDUCATED ON THE USE OF A CALL LIGHT AND DEMONSTRATES UNDERSTANDING VIA TEACHBACK METHOD. THE PATIENT APPEARS COMFORTABLE WITH NO QUESTIONS OR CONCERNS AT THIS TIME.
[2018-06-09 21:40] VITALS: BP 127/64
--- NOTE | 2018-06-10 03:54 | NUR ---
THE PATIENT APPEARS TO BE SLEEPING. BED IS IN THE LOW POSITION WITH SIDERAILS X2 AND CALL LIGHT WITHIN REACH.
--- NOTE | 2018-06-10 09:30 | NUR ---
PT AM MEDS ADMINISTERED. PT DENIES NEEDS. WCTM.
[2018-06-10 10:21] VITALS: BP 116/63
--- NOTE | 2018-06-10 17:58 | NUR ---
PT EATING DINNER, OANH NEEDS. WCTM.
--- NOTE | 2018-06-10 19:52 | NUR ---
THE PATIENT WAS LYING IN BED AND WATCHING TELEVISION WHEN STAFF ENTERED HER ROOM. BED IS IN THE LOW POSITION WITH SIDERAILS X2 AND CALL LIGHT WITHIN REACH. THE PATIENT WAS EDUCATED TO CALL STAFF FOR ASSISTANCE IN GETTING OUT OF BED AND DEMONSTRATED UNDERSTANDING VIA TEACHBACK METHOD.
[2018-06-10 20:08] VITALS: BP 91/61
--- NOTE | 2018-06-11 02:52 | NUR ---
THE PATIENT APPEARS TO BE SLEEPING. BED IN THE LOW POSITION WITH SIDERAILS X2 AND CALL LIGHT WITHIN REACH. THE PATIENT LOOKS COMFORTABLE.
[2018-06-11 07:36] LABS: BASOPHILS 0.5 % (0-2); EOSINOPHILS 7.3 % (0-7); HEMATOCRIT 36.9 % (36.0-48.0); HEMOGLOBIN 11.9 g/dL (12-16); IMMATURE GRANULOCYTES 0.7 % (0-5); LYMPHOCYTES 25.4 % (15-50); MCH 30.1 pg (26.0-34.0); MCHC 32.2 g/dL (31.0-37.0); MCV 93.4 fL (80.0-100.0); MEAN PLATELET VOLUME 9.6 fL (7.4-10.4); MONOCYTES 6.9 % (2-11); NEUTROPHILS 59.2 % (40-80); RBC 3.95 10x6/uL (4.00-5.40); RDW 14.5 % (11.5-14.5); WBC 10.4 10x3/uL (4.8-10.8)
[2018-06-11 07:43] LABS: CALC OSMOLALITY 282 mosm/kg (275-300); CALCIUM 8.5 mg/dL (8.5-10.1); CARBON DIOXIDE 23.6 mmol/L (21.0-32.0); CHLORIDE - SERUM 104 mmol/L (98-107); CREATININE - SERUM 0.7 mg/dL (0.6-1.3); GLUCOSE 96 mg/dL (74-106); POTASSIUM - SERUM 4.2 mmol/L (3.5-5.1); SODIUM 141 mmol/L (136-145); UREA NITROGEN 19 mg/dL (7-18); eGFR NON AFRICAN AMERICAN 89 mL/min (90-120)
--- NOTE | 2018-06-11 07:52 | NUR ---
PATIENT IS ALERT/ORIENT. SITTING UP IN BED TO EAT BREAKFAST. BED ALARM ON. CALL LIGHT WITHIN REACH. VOICES NO NEEDS AT THIS TIME. WILL CONTINUE WITH PLAN OF CARE
[2018-06-11 07:56] LABS: PLATELET COUNT 391 10x3/uL (130-400)
--- NOTE | 2018-06-11 07:56 | NUR ---
PATIENT IS ALERT/OREINT. SITTING UP IN BED TO EAT BREAKFAST. CALL LIGHT WITHIN REACH. VOICES NO NEEDS AT THIS TIME. WILL CONTINUE WITH PLAN OF CARE
[2018-06-11 08:17] VITALS: BP 116/67
--- NOTE | 2018-06-11 10:10 | NUR ---
PATIENT IN REHAB ROOM. WORKING WITH PHYSICAL THERAPIST. DENIES ANY PAIN/DISC AT THIS TIME.
--- NOTE | 2018-06-11 14:14 | NUR ---
PATIENT IN REHAB ROOM. WORKING WITH OCCUPATIONAL THERAPIST.
--- NOTE | 2018-06-11 16:47 | NUR ---
PATIENT RESTING IN BED AFTER THERAPY. CALL LIGHT WITHIN REACH
[2018-06-11 19:00] VITALS: BP 98/61
--- NOTE | 2018-06-11 19:21 | NUR ---
PT UP IN CHAIR, NO NEEDS NOTED PLEASANT, FLUIDS AND CALL LIGHT WITHIN REACH
--- NOTE | 2018-06-11 23:58 | NUR ---
PT REQUESTED MELATONIN BE HELD UNTIL LATER TO SEE IF PT COULD SLEEP WITHOUT IT. PT STILL SLEEPING RETURNING MELATONIN TO PYXIS. FLUIDS AND CALL LIGHT WITHIN REACH
[2018-06-12 08:00] VITALS: BP 112/62
--- NOTE | 2018-06-12 08:28 | NUR ---
ALERT AND ORIENTED. NO C/O PAIN. EATING BREAKFAST. CL IN REACH.
--- NOTE | 2018-06-12 12:42 | NUR ---
EATING LUNCH. PARTICIPATED IN THERAPY TODAY. NO C/O PAIN. CL IN REACH.
--- NOTE | 2018-06-12 16:32 | NUR ---
NO CHANGE IN ASSESSMENT. NO DISTRESS NOTED. CL IN REACH. RESP EVEN AND UNLABORED.
[2018-06-12 19:00] VITALS: BP 103/58
--- NOTE | 2018-06-12 19:29 | NUR ---
PT WATCHING TV, NO NEEDS NOTED, PLEASANT, FLUIDS AND CALL LIGHT WITHIN REACH
--- NOTE | 2018-06-13 01:57 | NUR ---
PT ASLEEP NO NEEDS NOTED FLUIDD AND CALL LIGHT WITHIN REACH
[2018-06-13 07:17] LABS: BASOPHILS 0.3 % (0-2); EOSINOPHILS 7.8 % (0-7); HEMATOCRIT 35.1 % (36.0-48.0); HEMOGLOBIN 11.3 g/dL (12-16); IMMATURE GRANULOCYTES 0.3 % (0-5); LYMPHOCYTES 22.3 % (15-50); MCH 30.1 pg (26.0-34.0); MCHC 32.2 g/dL (31.0-37.0); MCV 93.6 fL (80.0-100.0); MEAN PLATELET VOLUME 9.3 fL (7.4-10.4); MONOCYTES 7.7 % (2-11); NEUTROPHILS 61.6 % (40-80); PLATELET COUNT 390 10x3/uL (130-400); RBC 3.75 10x6/uL (4.00-5.40); RDW 14.5 % (11.5-14.5); WBC 9.5 10x3/uL (4.8-10.8)
[2018-06-13 07:32] LABS: CALC OSMOLALITY 283 mosm/kg (275-300); CALCIUM 8.2 mg/dL (8.5-10.1); CHLORIDE - SERUM 105 mmol/L (98-107); CREATININE - SERUM 0.6 mg/dL (0.6-1.3); GLUCOSE 88 mg/dL (74-106); POTASSIUM - SERUM 4.1 mmol/L (3.5-5.1); SODIUM 142 mmol/L (136-145); UREA NITROGEN 18 mg/dL (7-18); eGFR NON AFRICAN AMERICAN > 90 mL/min (90-120)
--- NOTE | 2018-06-13 07:53 | NUR ---
ALERT AND ORIENTED. EATING BREAKFAST. RESP EVEN AND UNLABORED. CL IN REACH. NO DISTRESS NOTED.
[2018-06-13 08:00] VITALS: BP 106/61
--- NOTE | 2018-06-13 09:38 | NUR ---
Nutrition Follow Up: Chart reviewed. Pt is eating 84% meal avg on a regular diet. +BM 06/11/18. Meds and labs reviewed. Pt continues at low nutritional risk. RD following.
--- NOTE | 2018-06-13 16:28 | NUR ---
RESTING IN BED. NO CHANGE IN ASSESSMENT. CL IN REACH.
[2018-06-13 19:00] VITALS: BP 99/68
--- NOTE | 2018-06-13 19:56 | NUR ---
PT UP IN WC, WHEELS LOCKED, FAMILY VISITING, DAUGHTER WHEELING PT AROUND HOSPITAL, FLUIDS AND CALL LIGHT WITHIN REACH
--- NOTE | 2018-06-14 00:08 | NUR ---
PT IN BED, LOWEST POSITION, AROUSES EASILY TO VOICE, FLUIDS AND CALL LIGHT WITHIN REACH, NO NEEDS NOTED
[2018-06-14 08:00] VITALS: BP 120/70
--- NOTE | 2018-06-14 08:00 | NUR ---
PATIENT IS ALERT/ORIENT. CALL LIGHT WITHIN REACH. VOICES NO NEEDS AT THIS TIME. WILL CONTINUE WITH PLAN OF CARE
--- NOTE | 2018-06-14 09:51 | NUR ---
PATIENT IN REHAB ROOM. WORKING WITH PHYSICAL THERAPIST. DENIES ANY PAIN/DISC AT THIS TIME.
--- NOTE | 2018-06-14 13:21 | NUR ---
PATIENT SITTING UP IN WHEELCHAIR AT BEDSIDE. CALL LIGHT WITHIN REACH. VOICES NO NEEDS AT THIS TIME.
--- NOTE | 2018-06-14 19:16 | NUR ---
PT SITTING UP IN WHEELCHAIR. CALL LIGHT IN REACH. PT DENIES NEEDS OR PAIN AT THIS TIME. RESP EVEN AND UNLABORED. INTRODUCED SELF. WILL CONTINUE TO MONITOR. A/O X4.
[2018-06-14 19:48] VITALS: BP 124/72
--- NOTE | 2018-06-15 01:32 | NUR ---
AWAKE AND ASSISTED TO BATHROOM PER CORE WINDER. NO DISTRESS NOTED.
--- NOTE | 2018-06-15 02:15 | NUR ---
PT RESTING QUIETLY. CALL LIGHT IN REACH. NO SIGNS OF DISTRESS OR PAIN. RESP EVEN AND UNLABORED.
[2018-06-15 06:48] LABS: BASOPHILS 0.4 % (0-2); EOSINOPHILS 6.7 % (0-7); HEMATOCRIT 34.4 % (36.0-48.0); HEMOGLOBIN 11.2 g/dL (12-16); IMMATURE GRANULOCYTES 0.4 % (0-5); LYMPHOCYTES 22.4 % (15-50); MCH 30.1 pg (26.0-34.0); MCHC 32.6 g/dL (31.0-37.0); MCV 92.5 fL (80.0-100.0); MEAN PLATELET VOLUME 9.3 fL (7.4-10.4); MONOCYTES 8.3 % (2-11); NEUTROPHILS 61.8 % (40-80); PLATELET COUNT 375 10x3/uL (130-400); RBC 3.72 10x6/uL (4.00-5.40); RDW 14.4 % (11.5-14.5); WBC 9.7 10x3/uL (4.8-10.8)
[2018-06-15 07:04] LABS: CALC OSMOLALITY 280 mosm/kg (275-300); CALCIUM 8.3 mg/dL (8.5-10.1); CARBON DIOXIDE 26.1 mmol/L (21.0-32.0); CHLORIDE - SERUM 105 mmol/L (98-107); CREATININE - SERUM 0.6 mg/dL (0.6-1.3); GLUCOSE 95 mg/dL (74-106); SODIUM 139 mmol/L (136-145); UREA NITROGEN 20 mg/dL (7-18); eGFR NON AFRICAN AMERICAN > 90 mL/min (90-120)
[2018-06-15 07:57] VITALS: BP 98/52
--- NOTE | 2018-06-15 08:11 | NUR ---
SITTING IN WC IN ROOM EATING BREAKFAST. DENIES NEEDS OR INCREASED PAIN. USES WC FOR MOTION ASST. PEDAL PULSES PRESENT X2. CALL LIGHT IN REACH
--- NOTE | 2018-06-15 12:08 | NUR ---
SITTING IN WC IN ROOM WAITING ON LUNCH. IS ANXIOUS TO DC AND GO HOME. DENIES INCREASED PAIN OR NEEDS. CALL LIGHT IN REACH
--- NOTE | 2018-06-15 13:34 | NUR ---
PATIENT DISCHARGING HOME TODAY WITH FAMILY. [facility] WILL PROVIDE THEREPY AT HOME. [facility] WILL DELIVER A ROLLING WALKER TO PATIENT. /NICK TRIPP 06/21/18 @ 10:15, DR. SMITH 06/26/18 @ 1:15. PATIENT CHOICE FORM FOR HOME HEALTH AND [facility] FORMS SIGNED, EXPLAINED TO PATIENT AND GIVEN COPIES AND FILED IN CHART. DISCHARGE INSTRUCTIONS WITH [facility] FAXED TO PCP AND TO HOME HEALTH.
[2018-06-15] MEDS ORDERED: BENADRYL 2% CRE30 GM TOPICAL ×2 (14:12→14:17)
--- NOTE | 2018-06-15 15:45 | NUR ---
DC HOME WITH ALL PERSONAL BELONGINGS. DECLINED THE NEED TO HAVE ANY MEDS CALLED IN STATING SHE ALREADY HAS ALL HER CURRENT MEDS AT HOME. FAMILY CAME TO GET HER. REVIEWED MEDS, DC PLAN AND FOLLOW UP APPTS.
== END 2018-06-15 15:45 | disposition home health service (06) | DRG 559 ==
LOC: D.REHAB 14:37
PROVIDERS: ADMIT Emergency Medicine; ATTEND Emergency Medicine
DX: S72.302D Unspecified fracture of shaft of left femur, subsequent encounter for closed fracture with routine healing (principal); I26.99 Other pulmonary embolism without acute cor pulmonale; D62 Acute posthemorrhagic anemia; N39.0 Urinary tract infection, site not specified; E46 Unspecified protein-calorie malnutrition; I82.409 Acute embolism and thrombosis of unspecified deep veins of unspecified lower extremity; M19.90 Unspecified osteoarthritis, unspecified site; J45.909 Unspecified asthma, uncomplicated; Z91.81 History of falling; I10 Essential (primary) hypertension; R06.00 Dyspnea, unspecified; R09.02 Hypoxemia; I95.9 Hypotension, unspecified; R73.9 Hyperglycemia, unspecified; F41.8 Other specified anxiety disorders; R32 Unspecified urinary incontinence; R06.03 Acute respiratory distress; R41.82 Altered mental status, unspecified; R53.83 Other fatigue; E87.8 Other disorders of electrolyte and fluid balance, not elsewhere classified; E16.2 Hypoglycemia, unspecified; E87.70 Fluid overload, unspecified; E86.0 Dehydration; I49.9 Cardiac arrhythmia, unspecified

== ENCOUNTER → 2018-06-26 14:47 | Outpatient (CLI) | payer MEDICARE ==
[2018-06-08 10:16] VITALS: BMI 29.7
[~2018-06-26 14:47] MED LIST changes: +BENADRYL 2% CRE30 GM TOPICAL
== END | disposition home or self-care (01) ==
LOC: D.US 14:47
PROVIDERS: ATTEND Orthopaedic Surgery
DX: R60.0 Localized edema (principal)

== ENCOUNTER → 2018-08-23 08:05 | Outpatient (CLI) | payer MEDICARE ==
[2018-06-08 10:16] VITALS: BMI 29.7
[2018-08-23 09:52] LABS: BASOPHILS 0.6 % (0-2); EOSINOPHILS 15.6 % (0-7); HEMATOCRIT 42.9 % (36.0-48.0); HEMOGLOBIN 14.4 g/dL (12-16); IMMATURE GRANULOCYTES 0.3 % (0-5); LYMPHOCYTES 28.9 % (15-50); MCH 30.4 pg (26.0-34.0); MCHC 33.6 g/dL (31.0-37.0); MCV 90.5 fL (80.0-100.0); MEAN PLATELET VOLUME 9.5 fL (7.4-10.4); MONOCYTES 6.7 % (2-11); NEUTROPHILS 47.9 % (40-80); RBC 4.74 10x6/uL (4.00-5.40); RDW 13.1 % (11.5-14.5); WBC 8.7 10x3/uL (4.8-10.8)
[2018-08-23 09:55] LABS: PLATELET COUNT 288 10x3/uL (130-400)
== END | disposition home or self-care (01) ==
LOC: D.RT 08:05
PROVIDERS: ATTEND Internal Medicine Pulmonary Disease
DX: J45.909 Unspecified asthma, uncomplicated (principal)

== ENCOUNTER 2019-01-29 14:24 | Observation (INO) | payer MEDICARE ==
[~2019-01-29] VITALS: Ht 170.2 cm; Wt 89.5 kg
[2019-01-29 15:40] LABS: BASOPHILS 0.2 % (0-2); HEMATOCRIT 44.7 % (36.0-48.0); HEMOGLOBIN 14.8 g/dL (12-16); IMMATURE GRANULOCYTES 0.3 % (0-5); LYMPHOCYTES 12.2 % (15-50); MCH 31.2 pg (26.0-34.0); MCHC 33.1 g/dL (31.0-37.0); MCV 94.1 fL (80.0-100.0); MEAN PLATELET VOLUME 9.8 fL (7.4-10.4); MONOCYTES 6.8 % (2-11); NEUTROPHILS 79.5 % (40-80); PLATELET COUNT 256 10x3/uL (130-400); RBC 4.75 10x6/uL (4.00-5.40); RDW 13.4 % (11.5-14.5); WBC 15.4 10x3/uL (4.8-10.8)
[2019-01-29 15:57] LABS: CALC OSMOLALITY 278 mosm/kg (275-300); CALCIUM 9.1 mg/dL (8.5-10.1); CARBON DIOXIDE 28.2 mmol/L (21.0-32.0); CHLORIDE - SERUM 102 mmol/L (98-107); CREATININE - SERUM 0.7 mg/dL (0.6-1.3); GLUCOSE 101 mg/dL (74-106); POTASSIUM - SERUM 3.8 mmol/L (3.5-5.1); SODIUM 140 mmol/L (136-145); UREA NITROGEN 12 mg/dL (7-18); eGFR NON AFRICAN AMERICAN 89 mL/min (90-120)
[2019-01-29 16:04] LABS: ALBUMIN 3.3 g/dL (3.4-5.0); ALKALINE PHOSPHATASE 96 U/L (46-116); ALT (SGPT) 52 U/L (10-68); BILIRUBIN - TOTAL 0.92 mg/dL (0.2-1.3); PROTEIN - SERUM 8.2 g/dL (6.4-8.2)
--- NOTE | 2019-01-29 16:27 | NUR ---
URINE SAMPLE SENT TO LAB AT THIS TIME.
[2019-01-29 16:50] LABS: APPEARANCE CLEAR (CLEAR); BILIRUBIN NEGATIVE (NEGATIVE); COLOR YELLOW (YELLOW); GLUCOSE NEGATIVE (NEGATIVE); KETONE SMALL mg/dL (NEGATIVE); NITRITE NEGATIVE (NEGATIVE); PROTEIN NEGATIVE (NEGATIVE); SPECIFIC GRAVITY 1.015 (1.005-1.020); UROBILINOGEN NORMAL (NORMAL)
[2019-01-29 16:52] LABS: EPITHELIAL CELLS 0-5 /hpf (0-5); RED CELLS - URINE 0-5 /hpf (0-5); WHITE CELLS - URINE 0-5 /hpf (NEGATIVE)
[2019-01-29 16:53] LABS: BACTERIA FEW /hpf (NEGATIVE)
--- NOTE | 2019-01-29 17:07 | NUR ---
PT LEAVING ED VIA STRETCHER AT THIS TIME FOR ORDERED CT, TRANSPORTED TO MEDICAL IMAGING VIA STRETCHER. NO SIGNS OF DISTRESS NOTED WHEN LEAVING.
--- NOTE | 2019-01-29 17:25 | NUR ---
PT BACK FROM CT, SIDE RAILS RAISED X2, CALL LIGHT IN REACH, FAMILY MEMBER AT BEDSIDE. IV INFUSING ORDERED WITHOUT SIGNS OF INFILTRATION. WILL CONTINUE TO MONITOR.
--- NOTE | 2019-01-29 19:02 | NUR ---
IV MERREM NOT COMPATABLE WITH ORDERED D5LR, INFUSION OF D5LR TO BE INITIATED ONCE ORDERED MERREM IS COMPLETE.
--- NOTE | 2019-01-29 19:04 | NUR ---
PT AWARE THAT SHE IS TO BE NPO AFTER MIDNIGHT FOR PROCEDURE ON 01/30/19.
--- NOTE | 2019-01-29 19:30 | NUR ---
RECEIVED PT FROM ER. A/O WITH NO SIGNS OF ACUTE DISTRESS. IV TO THE RT FOREARM WITH NO REDNESS OR SWELLING NOTED. STARTED MORPHINE LIQUOR GALLERY OPERATOR. DENIES NO NEEDS AT THIS TIME. CONTINUE PLAN OF CARE.
[2019-01-29 20:31] VITALS: BP 100/60
[2019-01-29 22:44] VITALS: BP 100/60; BMI 30.9
--- NOTE | 2019-01-29 23:33 | NUR ---
RECEIVED CALL FROM [facility] TO OBTAIN CONSENTS AND NOTIFY PT THAT MD WILL COME BY IN THE AM TO SEE PT. OBTAINED CONSETNS AND PLACED IN CHART. PT DENIES NO NEEDS AT THIS TIME. CONTINUE PLAN OF CARE.
[2019-01-30 00:22] VITALS: BP 105/67
[2019-01-30 03:58] VITALS: BP 92/52
--- NOTE | 2019-01-30 07:33 | NUR ---
PT RESTING IN BED. NO SIGNS OF DISTRESS. IV TO RIGHT FORARM PATENT NO REDNESS OR TENDERNESS. AWAITING POSSIBLE SURGERY THIS AM. DENIES ANY FURTHER NEED AT THIS TIME. CALL LIGHT IN REACH. BED LOW POSITION. NO FAMILY AT BEDSIDE AT THIS TIME.
[2019-01-30 09:13] VITALS: BP 99/69
[2019-01-30 10:12] VITALS: Ht 170.2 cm; Wt 89.5 kg
[2019-01-30 10:12] LABS: BASOPHILS 0.2 % (0-2); HEMATOCRIT 39.5 % (36.0-48.0); HEMOGLOBIN 12.8 g/dL (12-16); IMMATURE GRANULOCYTES 0.2 % (0-5); LYMPHOCYTES 15.3 % (15-50); MCH 30.5 pg (26.0-34.0); MCHC 32.4 g/dL (31.0-37.0); MCV 94.3 fL (80.0-100.0); MEAN PLATELET VOLUME 9.8 fL (7.4-10.4); MONOCYTES 7.9 % (2-11); NEUTROPHILS 72.4 % (40-80); PLATELET COUNT 238 10x3/uL (130-400); RBC 4.19 10x6/uL (4.00-5.40); RDW 13.5 % (11.5-14.5)
[2019-01-30 10:16] LABS: WBC 9.8 10x3/uL (4.8-10.8)
[2019-01-30 10:28] LABS: ALBUMIN 2.6 g/dL (3.4-5.0); ALKALINE PHOSPHATASE 100 U/L (46-116); ALT (SGPT) 60 U/L (10-68); BILIRUBIN - TOTAL 0.64 mg/dL (0.2-1.3); CALCIUM 8.3 mg/dL (8.5-10.1); CARBON DIOXIDE 29.1 mmol/L (21.0-32.0); CHLORIDE - SERUM 107 mmol/L (98-107); CREATININE - SERUM 0.7 mg/dL (0.6-1.3); GLUCOSE 109 mg/dL (74-106); POTASSIUM - SERUM 3.8 mmol/L (3.5-5.1); PROTEIN - SERUM 6.8 g/dL (6.4-8.2); SODIUM 142 mmol/L (136-145); eGFR NON AFRICAN AMERICAN 89 mL/min (90-120)
[2019-01-30 10:29] LABS: CALC OSMOLALITY 281 mosm/kg (275-300); UREA NITROGEN 8 mg/dL (7-18)
[2019-01-30] MEDS ORDERED: LEVOFLOXACIN500 MG PO (13:04)
[2019-01-30] MEDS ORDERED: HYDROCODON-ACE1 EAC7 PO (13:05)
[2019-01-30 13:59] VITALS: BP 94/51
--- NOTE | 2019-01-30 15:09 | MORECARE ---
CASE MANAGEMENT DISCHARGE SUMMARY PATIENT: GRIS DELGADO UNIT: [id number] ADM DATE: 01/29/19 AGE: 63 : 54 SEX: F ROOM/BED: D.2239 AUTHOR: ANGELA GOLDBERG PHYSICIAN: REFERRING PHYSICIAN: MAR STOREY MD DATE OF SERVICE: 01/30/19 Discharge Plan Patient Name: GRIS DELGADO Facility: [facility]:[place] : 1955 Planned Disposition: Home Anticipated Discharge Date: 01/30/19 Discharge Date: Expected LOS: 1 Initial Reviewer: [email or web address] Initial Review Date: 01/30/2019 Generated: 01/30/19 4:09 pm Coverage Notice Reviewer: [id number] - Annabelle Lee Notice Issued Date-Time: 01/30/2019 15:04 Notice Type: Medicare Outpatient Observation Notice Notice Delivered To: Patient Relationship to Patient: Self Solar Installation Foreman Name: Delivery Method: HAND - Hand Delivered Venus Days: Prior Verbal Notification: Recipient Understood Notice: Yes Recipient Signature: Yes Med Rec Note Co-signed by Attending: Coverage Notice Comment: GONGORA explained, signed, given, copy placed in MR Patient Name: GRIS DELGADO Page [id number] at 1509 All edits/amendments must be made on the electronic document DICTATION DATE: 01/30/19 150 PHARMACY COORDINATOR: YESENIA 01/30/19 1509 RPT#: [id number] DC DATE: STATUS: ADM IN [facility] [address] [place] [address] END OF REPORT
--- NOTE | 2019-01-30 15:19 | MORECARE ---
CASE MANAGEMENT DISCHARGE SUMMARY PATIENT: GRIS DELGADO UNIT: [id number] ADM DATE: 01/29/19 AGE: 63 : 54 SEX: F ROOM/BED: D.2239 AUTHOR: ASHLYN,DOC PHYSICIAN: REFERRING PHYSICIAN: MAR STOREY MD DATE OF SERVICE: 01/30/19 Discharge Plan Patient Name: GRIS DELGADO Facility: [facility]:[place] : 1955 Planned Disposition: Home Anticipated Discharge Date: 01/30/19 Discharge Date: Expected LOS: 1 Initial Reviewer: [email or web address] Initial Review Date: 01/30/2019 Generated: 01/30/19 4:18 pm Comments DCP- Discharge Planning Updated by [email or web address]: Annabelle Lee on 01/30/19 2:[address] Patient Name: GRIS DELGADO Admission Status: ER Accout number: [id number] Admission Date: 01-29-2019 : 1955 Admission Diagnosis: Attending: MAR STOREY Current LOS: 1 Anticipated DC Date: 01-30-2019 Planned Disposition: Home Primary Insurance: MEDICARE A & B Discharge Planning Comments: CM met with patient to discuss discharge planning/needs, she is alone in the room. She is post op appendectomy. She states she thinks she may be going home this evening if she does well. States her went home to take care of a few things, then will be back. States she is independent with all ADL's and AIDL's. States her discharge plan is to return home and feels this is a safe discharge. CM discussed home health and additional DME needs and denies needs at this time. No needs identified. CM will continue to follow and assist with discharge planning/needs. Testing Coordinator: Annabelle Lee DCPIA - Discharge Planning Initial Assessment Updated by [email or web address]: Annabelle Lee on 01/30/19 3:11 pm * Is the patient Alert and Oriented? Yes * How many steps to enter\exit or inside your home? Ramp/0 * PCP Dr. Lovell...sees Lizbet Sol * Pharmacy [facility] in [place] * Preadmission Environment Home with Family * ADLs Independent * Equipment Cane CPAP Walker * Other Equipment DME for CPAP is [facility] * List name and contact numbers for known caregivers / representatives who currently or will assist patient after discharge: Ramesh Delgado - Spouse - C [phone] H [phone] * Verbal permission to speak to the caregivers and representatives has been obtained from the patient. Yes * Community resources currently utilized None * Additional services required to return to the preadmission environment? No * Can the patient safely return to the preadmission environment? Yes * Has this patient been hospitalized within the prior 30 days at any hospital? No Coverage Notice Reviewer: [email or web address] Vanessa Lee Notice Issued Date-Time: 01/30/2019 15:04 Notice Type: Medicare Outpatient Observation Notice Notice Delivered To: Patient Relationship to Patient: Self V Belt Skiver Name: Delivery Method: HAND - Hand Delivered Venus Days: Prior Verbal Notification: Recipient Understood Notice: Yes Recipient Signature: Yes Med Rec Note Co-signed by Attending: Coverage Notice Comment: FRANSISCA explained, signed, given, copy placed in MR Last DP export: 01/30/19 2:09 Patient Name: GRIS DELGADO Page [phone] at 1519 All edits/amendments must be made on the electronic document DICTATION DATE: 01/30/191517 ROLL CUTTER: YESENIA 01/30/191517 RPT#: [id number] DC DATE: STATUS: ADM IN [facility] [address] [place] [address] END OF REPORT
[2019-01-30 16:22] VITALS: BP 100/56
[2019-01-30 19:30] VITALS: BP 91/58
--- NOTE | 2019-01-31 | NUR ---
ASSESSMENT PER FLOWSHEET. ALERT/ORIENTED X3 IV PATENT LR AT 100CC'S/HR LAMINATOR HAND OF MORPHINE IN USE WITH SETTINGS AT 1MG Q10MIN W/10MG Q4H L/O. FAMILY MEMBER AT BEDSIDE. LAP SITES X3 TO ABDOMEN C/D/I. SR UP X2 CALL LIGHT WITHIN REACH.
[2019-01-31 00:30] VITALS: BP 93/54
[2019-01-31 04:30] VITALS: BP 105/56
[2019-01-31 06:35] LABS: BASOPHILS 0.1 % (0-2); EOSINOPHILS 1.3 % (0-7); HEMATOCRIT 36.5 % (36.0-48.0); HEMOGLOBIN 11.8 g/dL (12-16); IMMATURE GRANULOCYTES 0.3 % (0-5); LYMPHOCYTES 14.5 % (15-50); MCH 30.7 pg (26.0-34.0); MCHC 32.3 g/dL (31.0-37.0); MCV 95.1 fL (80.0-100.0); MEAN PLATELET VOLUME 10.3 fL (7.4-10.4); MONOCYTES 7.8 % (2-11); PLATELET COUNT 247 10x3/uL (130-400); RBC 3.84 10x6/uL (4.00-5.40); RDW 13.7 % (11.5-14.5); WBC 9.8 10x3/uL (4.8-10.8)
[2019-01-31 07:14] LABS: ALBUMIN 2.2 g/dL (3.4-5.0); ALKALINE PHOSPHATASE 120 U/L (46-116); ALT (SGPT) 57 U/L (10-68); BILIRUBIN - TOTAL 0.56 mg/dL (0.2-1.3); CALC OSMOLALITY 272 mosm/kg (275-300); CALCIUM 8.1 mg/dL (8.5-10.1); CARBON DIOXIDE 27.6 mmol/L (21.0-32.0); CHLORIDE - SERUM 104 mmol/L (98-107); CREATININE - SERUM 0.7 mg/dL (0.6-1.3); GLUCOSE 111 mg/dL (74-106); POTASSIUM - SERUM 3.6 mmol/L (3.5-5.1); PROTEIN - SERUM 6.1 g/dL (6.4-8.2); SODIUM 137 mmol/L (136-145); UREA NITROGEN 7 mg/dL (7-18); eGFR NON AFRICAN AMERICAN 89 mL/min (90-120)
--- NOTE | 2019-01-31 07:59 | NUR ---
PT RESTING IN BED WITH EYES CLOSED, EASILY AROUSED TO SPEECH. IV LOCATED TO RIGHT WRIST RUNNING LR @ 100ML/HR. GETTING UP WITH TO WALK AROUND. STATES THAT SHE JUST PASSED GAS X2. WILL GET DC PAPERWORK TO HER AMY. DENIES NEEDS AT THIS TIME, WILL CONT TO MONITOR.
--- NOTE | 2019-01-31 09:49 | MORECARE ---
CASE MANAGEMENT DISCHARGE SUMMARY PATIENT: GRIS DELGADO UNIT: [id number] ADM DATE: 01/29/19 AGE: 63 : 53 SEX: F ROOM/BED: D.2239 AUTHOR: ASHLYN,DOC PHYSICIAN: REFERRING PHYSICIAN: MAR STOREY MD DATE OF SERVICE: 01/31/19 Discharge Plan Patient Name: GRIS DELGADO Facility: [facility]:[place] : 1955 Planned Disposition: Home Anticipated Discharge Date: 01/30/19 Discharge Date: 01/31/2019 Expected LOS: 1 Initial Reviewer: [email or web address] Initial Review Date: 01/30/2019 Generated: 01/31/19 10:48 am Comments DCP- Discharge Planning Updated by [email or web address]: Annabelle Lee on 01/30/19 2:[address] Patient Name: GRIS DELGADO Admission Status: ER Accout number: [id number] Admission Date: 01-29-2019 : 1955 Admission Diagnosis: Attending: MAR STOREY Current LOS: 1 Anticipated DC Date: 01-30-2019 Planned Disposition: Home Primary Insurance: MEDICARE A & B Discharge Planning Comments: CM met with patient to discuss discharge planning/needs, she is alone in the room. She is post op appendectomy. She states she thinks she may be going home this evening if she does well. States her went home to take care of a few things, then will be back. States she is independent with all ADL's and AIDL's. States her discharge plan is to return home and feels this is a safe discharge. CM discussed home health and additional DME needs and denies needs at this time. No needs identified. CM will continue to follow and assist with discharge planning/needs. Sales And Service Change Leader: Annabelle Lee DCPIA - Discharge Planning Initial Assessment Updated by [email or web address]: Annabelle Lee on 01/30/19 3:11 pm * Is the patient Alert and Oriented? Yes * How many steps to enter\exit or inside your home? Ramp/0 * PCP Dr. Lovell...sees Lizbet Sol * Pharmacy [facility] in [place] * Preadmission Environment Home with Family * ADLs Independent * Equipment Cane CPAP Walker * Other Equipment DME for CPAP is [facility] * List name and contact numbers for known caregivers / representatives who currently or will assist patient after discharge: Ramesh Delgado - Spouse - C [phone] * Verbal permission to speak to the caregivers and representatives has been obtained from the patient. Yes * Community resources currently utilized None * Additional services required to return to the preadmission environment? No * Can the patient safely return to the preadmission environment? Yes * Has this patient been hospitalized within the prior 30 days at any hospital? No Coverage Notice Reviewer: [email or web address] Vanessa Lee Notice Issued Date-Time: 01/30/2019 15:04 Notice Type: Medicare Outpatient Observation Notice Notice Delivered To: Patient Relationship to Patient: Self Mail Distribution Scheme Examiner Name: Delivery Method: HAND - Hand Delivered Venus Days: Prior Verbal Notification: Recipient Understood Notice: Yes Recipient Signature: Yes Med Rec Note Co-signed by Attending: Coverage Notice Comment: FRANSISCA explained, signed, given, copy placed in MR Last DP export: 01/30/19 2:19 Patient Name: GRIS DELGADO Page [id number] at 0949 All edits/amendments must be made on the electronic document DICTATION DATE: 01/31/19947 LOCATION ANALYST: YESENIA 01/31/19947 RPT#: [id number] DC DATE:01/31/19 STATUS: DIS IN [facility] [address] [place] [address] END OF REPORT
== END 2019-01-31 08:10 | disposition home or self-care (01) ==
LOC: D.ER 14:24 → D.MS 18:23 → OBSVTIME 18:24 → D.MS 01-31 08:10
PROVIDERS: Emergency Medicine; ADMIT Internal Medicine Nephrology; ATTEND Internal Medicine Nephrology
DX: K35.30 Acute appendicitis with localized peritonitis, without perforation or gangrene (principal); E86.0 Dehydration; I95.9 Hypotension, unspecified; N39.0 Urinary tract infection, site not specified; I10 Essential (primary) hypertension; J45.909 Unspecified asthma, uncomplicated; E66.9 Obesity, unspecified; L40.9 Psoriasis, unspecified